=== PATIENT | male | born 1960 | race Caucasian/White ===

== ENCOUNTER → 2020-09-28 | Outpatient (CLI) | payer OTHER | END | disposition home or self-care (01) | LOC: CT 10:02 | DX: M48.03 Spinal stenosis, cervicothoracic region (principal); M47.813 Spondylosis without myelopathy or radiculopathy, cervicothoracic region; Z98.1 Arthrodesis status; G89.29 Other chronic pain | CPT/HCPCS: 72125 ==

== ENCOUNTER 2021-03-25 16:55 | Inpatient (IN) | payer OTHER ==
[~2021-03-25] VITALS: Ht 177.8 cm; Wt 97.8 kg
[2021-03-25] MEDS ORDERED: cefTRIAXone 1GM/50ML D5W 50 ML IV ONE (19:00)
[2021-03-25] MEDS ORDERED: ONDANSETRON HCL 4 MG/2 ML VIAL IV ONE (19:00)
[2021-03-25] MEDS ORDERED: SODIUM CHLORIDE 0.9% 1,000 ML IVB ONE (19:00)
[2021-03-25] MEDS ORDERED: MORPHINE SULFATE INJECTION 2 MG/ML SYRG IV ONE (20:15)
[2021-03-25 20:21] LABS: Basophils # (auto) 0.1 10 ^3/uL (0-0.2); Eosinophils # (auto) 0.1 10 ^3/uL (0-0.8); Monocytes % (auto) 10.1 % (0.0-12.0); Nucleated Red Blood Cells % 0.1 %
[2021-03-25 20:23] LABS: Basophils % (auto) 0.4 % (0.0-2.0); Eosinophils % (auto) 0.7 % (0.0-7.0); Hematocrit 47.9 % (41.0-53.0); Hemoglobin 15.8 g/dL (13.5-17.5); Lymphocytes # (auto) 2.7 10 ^3/uL (0.4-5.4); Lymphocytes % (auto) 14.8 % (10.0-50.0); Mean Corpuscular Hemoglobin 31.9 pg (28.0-32.0); Mean Corpuscular Hgb Conc. 33.1 g/dL (32.0-36.0); Mean Corpuscular Volume 96.4 fL (80.0-100.0); Monocytes # (auto) 1.9 10 ^3/uL (0-1.3); Neutrophils # (auto) 13.6 10 ^3/uL (1.6-8.6); Red Blood Cells 4.97 10^6/uL (4.5-5.90); Red Cell Distribution Width 14.1 % (11.8-14.3); White Blood Cell 18.4 10^3/uL (4.4-10.8)
[2021-03-25 20:32] LABS: Partial Thromboplastin Time 22.5 sec (23.6-33.0)
[2021-03-25 20:38] LABS: Alanine Aminotransferase 35 U/L (16-61); Albumin 3.5 g/dL (3.4-5.0); Anion Gap 10 (5-15); Aspartate Aminotransferase 36 U/L (15-37); Blood Urea Nitrogen 17 mg/dL (7-18); Calcium 9.4 mg/dL (8.5-10.1); Carbon Dioxide 24 mmol/L (21-32); Chloride 104 mmol/L (98-107); GFR African American 138 mL/min; GFR Non-African American 114 mL/min; Glucose 88 mg/dL (74-106); Magnesium 2.5 mg/dL (1.6-2.6); Potassium 4.9 mmol/L (3.5-5.1); Sodium 138 mmol/L (136-145)
[2021-03-25 20:42] LABS: Alkaline Phosphatase 80 U/L (45-117); Bilirubin, Total 0.6 mg/dL (0.2-1.0); Total Protein 8.6 g/dL (6.4-8.2)
[2021-03-25] MEDS ORDERED: VANCOMYCIN PER PHARMACY 0 MG IV SCH (22:00)
[2021-03-25] MEDS ORDERED: NITROGLYCERIN 0.4 MG SL TAB SL PRN (22:15)
[2021-03-25] MEDS ORDERED: MORPHINE SULFATE INJECTION 2 MG/ML SYRG IV PRN (22:15)
[2021-03-25] MEDS ORDERED: VANCOMYCIN 1GM/250ML 250 ML IV ONE ×2 (22:15→22:30)
[2021-03-25] MEDS: HYDROmorphone HCL 2 MG/ML VL IV PRN (22:58)
[2021-03-26] VITALS (7 sets, daily range): BP systolic 120–155; BP diastolic 76–93
[2021-03-26] MEDS: PIPERACILLIN-TAZOB 3.375GM 100 ML IV SCH ×4 (01:30→18:01)
[2021-03-26] MEDS: HYDROmorphone HCL 2 MG/ML VL IV PRN ×4 (01:46→20:32)
[2021-03-26] MEDS ORDERED: AMLO-489 PO (04:12)
[2021-03-26 04:52] LABS: Basophils # (auto) 0.1 10 ^3/uL (0-0.2); Basophils % (auto) 0.6 % (0.0-2.0); Eosinophils # (auto) 0.1 10 ^3/uL (0-0.8); Hemoglobin 13.2 g/dL (13.5-17.5); Neutrophils # (auto) 9.9 10 ^3/uL (1.6-8.6); White Blood Cell 15.2 10^3/uL (4.4-10.8)
[2021-03-26 04:54] LABS: Eosinophils % (auto) 0.9 % (0.0-7.0); Hematocrit 39.8 % (41.0-53.0); Lymphocytes # (auto) 2.6 10 ^3/uL (0.4-5.4); Lymphocytes % (auto) 17.1 % (10.0-50.0); Mean Corpuscular Hemoglobin 31.8 pg (28.0-32.0); Mean Corpuscular Volume 96.2 fL (80.0-100.0); Monocytes # (auto) 2.5 10 ^3/uL (0-1.3); Monocytes % (auto) 16.4 % (0.0-12.0); Red Blood Cells 4.14 10^6/uL (4.5-5.90); Red Cell Distribution Width 14.3 % (11.8-14.3)
[2021-03-26] MEDS: PANTOPRAZOLE 40 MG/10 ML VIAL INJ IV SCH (09:40)
[2021-03-26] MEDS: amLODIPine BESYLATE 5 MG TAB PO SCH (09:42)
[2021-03-26] MEDS: ENOXAPARIN SOD 40 MG/0.4 ML SYRINGE SC SCH (09:42)
[2021-03-26] MEDS: VANCOMYCIN 1GM/250ML 250 ML IV SCH (12:57)
[2021-03-26 20:24] LABS: Basophils # (auto) 0.1 10 ^3/uL (0-0.2); Eosinophils # (auto) 0.1 10 ^3/uL (0-0.8); Hemoglobin 13.6 g/dL (13.5-17.5); Lymphocytes # (auto) 2.3 10 ^3/uL (0.4-5.4); Monocytes # (auto) 1.9 10 ^3/uL (0-1.3); Neutrophils # (auto) 9.4 10 ^3/uL (1.6-8.6)
[2021-03-26 20:26] LABS: Basophils % (auto) 0.4 % (0.0-2.0); Eosinophils % (auto) 1.1 % (0.0-7.0); Hematocrit 41.7 % (41.0-53.0); Lymphocytes % (auto) 16.4 % (10.0-50.0); Mean Corpuscular Hemoglobin 31.6 pg (28.0-32.0); Mean Corpuscular Hgb Conc. 32.6 g/dL (32.0-36.0); Mean Corpuscular Volume 96.9 fL (80.0-100.0); Monocytes % (auto) 13.8 % (0.0-12.0); Neutrophils % (auto) 68.3 % (37.0-80.0); Red Cell Distribution Width 14.1 % (11.8-14.3); White Blood Cell 13.8 10^3/uL (4.4-10.8)
[2021-03-26] MEDS: ONDANSETRON HCL 4 MG/2 ML VIAL IV PRN (20:33)
[2021-03-26 20:41] LABS: Albumin 2.9 g/dL (3.4-5.0); BUN/Creatinine Ratio 22.7; Potassium 4.3 mmol/L (3.5-5.1)
[2021-03-26 20:45] LABS: Bilirubin, Total 0.4 mg/dL (0.2-1.0); Total Protein 7.1 g/dL (6.4-8.2)
[2021-03-26] MEDS: MUPIROCIN 2% OINT 15gm or 22gm EACHNOSTRI SCH (21:45)
[2021-03-27] MEDS: PIPERACILLIN-TAZOB 3.375GM 100 ML IV SCH ×4 (00:15→18:07)
[2021-03-27] MEDS: HYDROmorphone HCL 2 MG/ML VL IV PRN ×6 (00:25→21:42)
[2021-03-27] MEDS: HYDROcodone-ACET 5/325MG TAB PO PRN (03:02)
[2021-03-27] MEDS: VANCOMYCIN 1GM/250ML 250 ML IV SCH ×2 (03:15→16:44)
[2021-03-27 05:00] VITALS: BP 111/75
[2021-03-27 08:00] VITALS: BP 125/74
[2021-03-27 09:00] VITALS: BP 125/74
[2021-03-27] MEDS: PANTOPRAZOLE 40 MG/10 ML VIAL INJ IV SCH (10:00)
[2021-03-27] MEDS: MUPIROCIN 2% OINT 15gm or 22gm EACHNOSTRI SCH (10:00)
[2021-03-27] MEDS: amLODIPine BESYLATE 5 MG TAB PO SCH (10:01)
[2021-03-27] MEDS: ENOXAPARIN SOD 40 MG/0.4 ML SYRINGE SC SCH (10:01)
[2021-03-27] MEDS: ONDANSETRON HCL 4 MG/2 ML VIAL IV PRN ×2 (11:04→15:41)
[2021-03-27] MEDS ORDERED: MILK OF MAGNESIA 30ML SUSP PO ONE (11:30)
[2021-03-27] MEDS ORDERED: DOCUSATE SOD 100 MG CAP PO ONE (11:30)
[2021-03-27 13:00] VITALS: BP 128/79
[2021-03-27 16:11] LABS: Mean Corpuscular Hemoglobin 31.7 pg (28.0-32.0); Mean Corpuscular Hgb Conc. 32.7 g/dL (32.0-36.0)
[2021-03-27 16:14] LABS: Basophils # (auto) 0.1 10 ^3/uL (0-0.2); Basophils % (auto) 0.5 % (0.0-2.0); Eosinophils # (auto) 0.2 10 ^3/uL (0-0.8); Eosinophils % (auto) 1.6 % (0.0-7.0); Hematocrit 42.2 % (41.0-53.0); Hemoglobin 13.8 g/dL (13.5-17.5); Lymphocytes # (auto) 2.6 10 ^3/uL (0.4-5.4); Lymphocytes % (auto) 16.7 % (10.0-50.0); Monocytes % (auto) 13.1 % (0.0-12.0); Neutrophils # (auto) 10.6 10 ^3/uL (1.6-8.6); Neutrophils % (auto) 68.1 % (37.0-80.0); Red Blood Cells 4.35 10^6/uL (4.5-5.90); Red Cell Distribution Width 13.8 % (11.8-14.3); White Blood Cell 15.6 10^3/uL (4.4-10.8)
[2021-03-27 17:00] VITALS: BP 127/75
[2021-03-27 22:00] VITALS: BP 145/95
[2021-03-28] MEDS: MILK OF MAGNESIA 30ML SUSP PO SCH ×5 (00:03→22:45)
[2021-03-28] MEDS: MUPIROCIN 2% OINT 15gm or 22gm EACHNOSTRI SCH ×3 (00:03→22:21)
[2021-03-28] MEDS: PIPERACILLIN-TAZOB 3.375GM 100 ML IV SCH ×5 (00:05→23:21)
[2021-03-28] MEDS: HYDROmorphone HCL 2 MG/ML VL IV PRN ×5 (01:11→23:22)
[2021-03-28] MEDS: VANCOMYCIN 1GM/250ML 250 ML IV SCH ×2 (04:54→18:00)
[2021-03-28 05:00] VITALS: BP 136/80
[2021-03-28] MEDS: ONDANSETRON HCL 4 MG/2 ML VIAL IV PRN ×4 (06:43→23:22)
[2021-03-28 09:00] VITALS: BP 118/83
[2021-03-28] MEDS: amLODIPine BESYLATE 5 MG TAB PO SCH (10:00)
[2021-03-28] MEDS: ENOXAPARIN SOD 40 MG/0.4 ML SYRINGE SC SCH (10:00)
[2021-03-28] MEDS: PANTOPRAZOLE 40 MG/10 ML VIAL INJ IV SCH (10:00)
[2021-03-28 17:00] VITALS: BP 100/49
[2021-03-28 22:00] VITALS: BP 126/75
[2021-03-29] MEDS: HYDROmorphone HCL 2 MG/ML VL IV PRN ×4 (03:53→23:50)
[2021-03-29 05:00] VITALS: BP 120/78
[2021-03-29] MEDS: VANCOMYCIN 1GM/250ML 250 ML IV SCH ×2 (05:09→17:00)
[2021-03-29] MEDS: PIPERACILLIN-TAZOB 3.375GM 100 ML IV SCH ×4 (05:15→23:47)
[2021-03-29] MEDS: MILK OF MAGNESIA 30ML SUSP PO SCH ×3 (06:41→23:48)
[2021-03-29 09:19] VITALS: BP 134/81
[2021-03-29] MEDS: MUPIROCIN 2% OINT 15gm or 22gm EACHNOSTRI SCH ×2 (10:00→22:00)
[2021-03-29] MEDS: ONDANSETRON HCL 4 MG/2 ML VIAL IV PRN ×3 (11:11→23:50)
[2021-03-29] MEDS: amLODIPine BESYLATE 5 MG TAB PO SCH (11:13)
[2021-03-29] MEDS: ENOXAPARIN SOD 40 MG/0.4 ML SYRINGE SC SCH (11:14)
[2021-03-29] MEDS: PANTOPRAZOLE 40 MG/10 ML VIAL INJ IV SCH (11:19)
[2021-03-29 13:00] VITALS: BP 128/78
[2021-03-29 17:00] VITALS: BP 126/71
[2021-03-29 22:00] VITALS: BP 126/69
[2021-03-29] MEDS: HYDROcodone-ACET 5/325MG TAB PO PRN (22:17)
[2021-03-30] MEDS: HYDROcodone-ACET 5/325MG TAB PO PRN ×2 (04:29→11:39)
[2021-03-30] MEDS: VANCOMYCIN 1GM/250ML 250 ML IV SCH ×2 (04:30→16:48)
[2021-03-30 05:00] VITALS: BP 142/91
[2021-03-30] MEDS: MILK OF MAGNESIA 30ML SUSP PO SCH ×3 (06:26→22:16)
[2021-03-30] MEDS: PIPERACILLIN-TAZOB 3.375GM 100 ML IV SCH ×4 (06:32→23:50)
[2021-03-30] MEDS: HYDROmorphone HCL 2 MG/ML VL IV PRN ×4 (06:40→23:50)
[2021-03-30] MEDS: ONDANSETRON HCL 4 MG/2 ML VIAL IV PRN ×2 (06:40→20:32)
[2021-03-30 09:05] VITALS: BP 132/68
[2021-03-30] MEDS: MUPIROCIN 2% OINT 15gm or 22gm EACHNOSTRI SCH ×2 (09:31→22:16)
[2021-03-30] MEDS: PANTOPRAZOLE 40 MG/10 ML VIAL INJ IV SCH (09:31)
[2021-03-30] MEDS: amLODIPine BESYLATE 5 MG TAB PO SCH (09:31)
[2021-03-30] MEDS: ENOXAPARIN SOD 40 MG/0.4 ML SYRINGE SC SCH (09:31)
[2021-03-30 13:00] VITALS: BP 140/87
[2021-03-30 16:19] VITALS: BP 120/75
[2021-03-30 22:00] VITALS: BP 124/83
[2021-03-31] MEDS: HYDROmorphone HCL 2 MG/ML VL IV PRN ×6 (03:04→20:35)
[2021-03-31] MEDS: ONDANSETRON HCL 4 MG/2 ML VIAL IV PRN ×3 (03:04→16:59)
[2021-03-31 05:00] VITALS: BP 114/77
[2021-03-31] MEDS: VANCOMYCIN 1GM/250ML 250 ML IV SCH ×2 (05:09→17:30)
[2021-03-31] MEDS: PIPERACILLIN-TAZOB 3.375GM 100 ML IV SCH ×4 (06:08→23:45)
[2021-03-31] MEDS: MILK OF MAGNESIA 30ML SUSP PO SCH ×3 (06:08→23:44)
[2021-03-31 08:24] LABS: Basophils # (auto) 0.1 10 ^3/uL (0-0.2); Eosinophils # (auto) 0.3 10 ^3/uL (0-0.8); Hemoglobin 14.3 g/dL (13.5-17.5); Lymphocytes # (auto) 2.3 10 ^3/uL (0.4-5.4); Nucleated Red Blood Cells % 0.1 %; Red Cell Distribution Width 13.9 % (11.8-14.3)
[2021-03-31 08:25] LABS: Basophils % (auto) 0.6 % (0.0-2.0); Eosinophils % (auto) 2.3 % (0.0-7.0); Lymphocytes % (auto) 16.3 % (10.0-50.0); Mean Corpuscular Hemoglobin 31.8 pg (28.0-32.0); Mean Corpuscular Hgb Conc. 33.3 g/dL (32.0-36.0); Mean Corpuscular Volume 95.6 fL (80.0-100.0); Neutrophils # (auto) 9.3 10 ^3/uL (1.6-8.6); Neutrophils % (auto) 66.8 % (37.0-80.0)
[2021-03-31 08:43] VITALS: BP 127/80
[2021-03-31] MEDS: MUPIROCIN 2% OINT 15gm or 22gm EACHNOSTRI SCH (09:58)
[2021-03-31] MEDS: amLODIPine BESYLATE 5 MG TAB PO SCH (09:59)
[2021-03-31] MEDS: ENOXAPARIN SOD 40 MG/0.4 ML SYRINGE SC SCH (09:59)
[2021-03-31] MEDS: PANTOPRAZOLE 40 MG/10 ML VIAL INJ IV SCH (09:59)
[2021-03-31] MEDS: CYCLOBENZAPRINE HCL 10 MG TAB PO PRN ×2 (10:59→20:42)
[2021-03-31 13:00] VITALS: BP 126/76
[2021-03-31 16:20] VITALS: BP 134/85
[2021-03-31 22:00] VITALS: BP 119/80
[2021-04-01] MEDS: HYDROmorphone HCL 2 MG/ML VL IV PRN ×7 (00:21→23:45)
[2021-04-01] MEDS: ONDANSETRON HCL 4 MG/2 ML VIAL IV PRN ×3 (00:22→17:07)
[2021-04-01 05:00] VITALS: BP 130/82
[2021-04-01] MEDS: VANCOMYCIN 1GM/250ML 250 ML IV SCH ×2 (05:00→17:36)
[2021-04-01] MEDS: PIPERACILLIN-TAZOB 3.375GM 100 ML IV SCH ×3 (06:00→18:38)
[2021-04-01] MEDS: MILK OF MAGNESIA 30ML SUSP PO SCH ×3 (06:29→22:22)
[2021-04-01 09:00] VITALS: BP 145/87
[2021-04-01] MEDS: PANTOPRAZOLE 40 MG/10 ML VIAL INJ IV SCH (09:36)
[2021-04-01] MEDS: amLODIPine BESYLATE 5 MG TAB PO SCH (09:37)
[2021-04-01] MEDS: ENOXAPARIN SOD 40 MG/0.4 ML SYRINGE SC SCH (09:38)
[2021-04-01 13:00] VITALS: BP 109/70
[2021-04-01 17:00] VITALS: BP 127/88
[2021-04-01 22:00] VITALS: BP 120/76
[2021-04-02] MEDS: PIPERACILLIN-TAZOB 3.375GM 100 ML IV SCH ×4 (02:03→17:33)
[2021-04-02] MEDS: HYDROmorphone HCL 2 MG/ML VL IV PRN ×6 (02:42→23:00)
[2021-04-02 05:00] VITALS: BP 123/80
[2021-04-02] MEDS: VANCOMYCIN 1GM/250ML 250 ML IV SCH ×2 (05:00→17:33)
[2021-04-02] MEDS: MILK OF MAGNESIA 30ML SUSP PO SCH ×3 (06:03→21:13)
[2021-04-02 09:00] VITALS: BP 119/79
[2021-04-02] MEDS: amLODIPine BESYLATE 5 MG TAB PO SCH (09:34)
[2021-04-02] MEDS: PANTOPRAZOLE 40 MG/10 ML VIAL INJ IV SCH (09:34)
[2021-04-02] MEDS: ENOXAPARIN SOD 40 MG/0.4 ML SYRINGE SC SCH (09:35)
[2021-04-02 13:00] VITALS: BP 133/69
[2021-04-02] MEDS: ONDANSETRON HCL 4 MG/2 ML VIAL IV PRN (16:37)
[2021-04-02 17:49] VITALS: BP 106/72
[2021-04-02] MEDS: CYCLOBENZAPRINE HCL 10 MG TAB PO PRN (21:00)
[2021-04-02 22:00] VITALS: BP 121/75
[2021-04-03] MEDS: HYDROcodone-ACET 5/325MG TAB PO PRN (00:30)
[2021-04-03] MEDS: HYDROmorphone HCL 2 MG/ML VL IV PRN ×6 (02:00→22:13)
[2021-04-03 05:00] VITALS: BP 126/86
[2021-04-03] MEDS: VANCOMYCIN 1GM/250ML 250 ML IV SCH ×3 (05:00→22:13)
[2021-04-03] MEDS: PIPERACILLIN-TAZOB 3.375GM 100 ML IV SCH ×4 (06:00→18:04)
[2021-04-03] MEDS: MILK OF MAGNESIA 30ML SUSP PO SCH ×3 (06:15→21:58)
[2021-04-03] MEDS: CYCLOBENZAPRINE HCL 10 MG TAB PO PRN ×2 (07:46→23:00)
[2021-04-03 07:51] LABS: Basophils # (auto) 0.1 10 ^3/uL (0-0.2); Lymphocytes # (auto) 2.2 10 ^3/uL (0.4-5.4); Monocytes # (auto) 1.5 10 ^3/uL (0-1.3); Neutrophils # (auto) 7.3 10 ^3/uL (1.6-8.6); Nucleated Red Blood Cells % 0.1 %
[2021-04-03 07:53] LABS: Basophils % (auto) 1.2 % (0.0-2.0); Eosinophils # (auto) 0.4 10 ^3/uL (0-0.8); Eosinophils % (auto) 3.3 % (0.0-7.0); Hematocrit 43.4 % (41.0-53.0); Hemoglobin 14.5 g/dL (13.5-17.5); Lymphocytes % (auto) 19.3 % (10.0-50.0); Mean Corpuscular Hemoglobin 32.1 pg (28.0-32.0); Mean Corpuscular Hgb Conc. 33.5 g/dL (32.0-36.0); Mean Corpuscular Volume 95.9 fL (80.0-100.0); Monocytes % (auto) 13.3 % (0.0-12.0); Neutrophils % (auto) 62.9 % (37.0-80.0); Red Blood Cells 4.53 10^6/uL (4.5-5.90); Red Cell Distribution Width 13.8 % (11.8-14.3); White Blood Cell 11.6 10^3/uL (4.4-10.8)
[2021-04-03 07:55] LABS: Albumin 2.9 g/dL (3.4-5.0); Calcium 9.3 mg/dL (8.5-10.1); Potassium 4.5 mmol/L (3.5-5.1)
[2021-04-03 07:59] LABS: BUN/Creatinine Ratio 13.2; Bilirubin, Total 0.3 mg/dL (0.2-1.0)
[2021-04-03] MEDS: PANTOPRAZOLE 40 MG/10 ML VIAL INJ IV SCH (08:23)
[2021-04-03] MEDS: amLODIPine BESYLATE 5 MG TAB PO SCH (08:24)
[2021-04-03] MEDS: ENOXAPARIN SOD 40 MG/0.4 ML SYRINGE SC SCH (08:25)
[2021-04-03 09:00] VITALS: BP 115/83
[2021-04-03 13:00] VITALS: BP 115/78
[2021-04-03 14:37] LABS: Basophils # (auto) 0.1 10 ^3/uL (0-0.2); Eosinophils # (auto) 0.3 10 ^3/uL (0-0.8); Lymphocytes # (auto) 1.5 10 ^3/uL (0.4-5.4); Monocytes # (auto) 1.2 10 ^3/uL (0-1.3); Monocytes % (auto) 10.5 % (0.0-12.0)
[2021-04-03 14:38] LABS: Basophils % (auto) 0.7 % (0.0-2.0); Eosinophils % (auto) 2.7 % (0.0-7.0); Hematocrit 46.2 % (41.0-53.0); Lymphocytes % (auto) 13.8 % (10.0-50.0); Mean Corpuscular Hemoglobin 31.1 pg (28.0-32.0); Mean Corpuscular Hgb Conc. 32.5 g/dL (32.0-36.0); Mean Corpuscular Volume 95.6 fL (80.0-100.0); Neutrophils % (auto) 72.3 % (37.0-80.0); Nucleated Red Blood Cells % 0.1 %; Red Blood Cells 4.84 10^6/uL (4.5-5.90); Red Cell Distribution Width 13.9 % (11.8-14.3); White Blood Cell 11.1 10^3/uL (4.4-10.8)
[2021-04-03 14:59] LABS: Calcium 8.9 mg/dL (8.5-10.1); Potassium 4.5 mmol/L (3.5-5.1)
[2021-04-03 15:02] LABS: BUN/Creatinine Ratio 13.6; Bilirubin, Total 0.2 mg/dL (0.2-1.0); Total Protein 7.9 g/dL (6.4-8.2)
[2021-04-03 17:00] VITALS: BP 107/40
[2021-04-03 20:00] VITALS: BP 112/73
[2021-04-03 22:00] VITALS: BP 112/73
[2021-04-04] MEDS: HYDROmorphone HCL 2 MG/ML VL IV PRN ×6 (01:13→21:15)
[2021-04-04 05:00] VITALS: BP 124/68
[2021-04-04] MEDS: PIPERACILLIN-TAZOB 3.375GM 100 ML IV SCH ×4 (06:00→17:51)
[2021-04-04] MEDS: MILK OF MAGNESIA 30ML SUSP PO SCH ×3 (06:45→22:45)
[2021-04-04 08:00] VITALS: BP 111/73
[2021-04-04] MEDS: VANCOMYCIN 1GM/250ML 250 ML IV SCH ×2 (09:22→23:03)
[2021-04-04] MEDS: PANTOPRAZOLE 40 MG/10 ML VIAL INJ IV SCH (09:22)
[2021-04-04] MEDS: ENOXAPARIN SOD 40 MG/0.4 ML SYRINGE SC SCH (09:22)
[2021-04-04] MEDS: amLODIPine BESYLATE 5 MG TAB PO SCH (09:23)
[2021-04-04] MEDS: ONDANSETRON HCL 4 MG/2 ML VIAL IV PRN ×3 (09:30→21:16)
[2021-04-04 13:00] VITALS: BP 127/80
[2021-04-04 17:04] VITALS: BP 143/85
[2021-04-04 22:00] VITALS: BP 120/60
[2021-04-05] MEDS: PIPERACILLIN-TAZOB 3.375GM 100 ML IV SCH ×5 (00:30→18:29)
[2021-04-05] MEDS: HYDROmorphone HCL 2 MG/ML VL IV PRN ×4 (02:15→16:15)
[2021-04-05 05:00] VITALS: BP 121/71
[2021-04-05] MEDS: MILK OF MAGNESIA 30ML SUSP PO SCH ×3 (06:17→22:45)
[2021-04-05] MEDS: ONDANSETRON HCL 4 MG/2 ML VIAL IV PRN (06:19)
[2021-04-05 09:00] VITALS: BP 125/77
[2021-04-05] MEDS: PANTOPRAZOLE 40 MG/10 ML VIAL INJ IV SCH (10:08)
[2021-04-05] MEDS: ENOXAPARIN SOD 40 MG/0.4 ML SYRINGE SC SCH (10:09)
[2021-04-05] MEDS: amLODIPine BESYLATE 5 MG TAB PO SCH (10:20)
[2021-04-05 13:00] VITALS: BP 110/82
[2021-04-05] MEDS: OXYCODONE W/ ACETAMINOPHEN 5/325MG TABLET PO PRN ×2 (13:07→21:54)
[2021-04-05] MEDS: VANCOMYCIN 1GM/250ML 250 ML IV SCH (13:30)
[2021-04-05 17:00] VITALS: BP 108/69
[2021-04-05 22:00] VITALS: BP 131/85
[2021-04-06] MEDS: OXYCODONE W/ ACETAMINOPHEN 5/325MG TABLET PO PRN ×5 (01:37→22:08)
[2021-04-06] MEDS: VANCOMYCIN 1GM/250ML 250 ML IV SCH ×2 (03:07→17:11)
[2021-04-06 05:00] VITALS: BP 130/71
[2021-04-06] MEDS: PIPERACILLIN-TAZOB 3.375GM 100 ML IV SCH ×4 (05:36→21:15)
[2021-04-06] MEDS: MILK OF MAGNESIA 30ML SUSP PO SCH ×3 (06:37→22:45)
[2021-04-06 06:52] LABS: Basophils # (auto) 0.1 10 ^3/uL (0-0.2); Eosinophils # (auto) 0.3 10 ^3/uL (0-0.8); Hemoglobin 15.1 g/dL (13.5-17.5); Monocytes # (auto) 1.6 10 ^3/uL (0-1.3); White Blood Cell 10.2 10^3/uL (4.4-10.8)
[2021-04-06 06:56] LABS: Potassium 4.3 mmol/L (3.5-5.1)
[2021-04-06 06:57] LABS: Eosinophils % (auto) 2.9 % (0.0-7.0); Hematocrit 45.1 % (41.0-53.0); Lymphocytes # (auto) 2.6 10 ^3/uL (0.4-5.4); Lymphocytes % (auto) 25.9 % (10.0-50.0); Mean Corpuscular Hemoglobin 32.4 pg (28.0-32.0); Mean Corpuscular Hgb Conc. 33.4 g/dL (32.0-36.0); Mean Corpuscular Volume 96.8 fL (80.0-100.0); Monocytes % (auto) 15.2 % (0.0-12.0); Neutrophils # (auto) 5.6 10 ^3/uL (1.6-8.6); Nucleated Red Blood Cells % 0.1 %; Red Blood Cells 4.66 10^6/uL (4.5-5.90); Red Cell Distribution Width 14.2 % (11.8-14.3)
[2021-04-06 07:01] LABS: Calcium 9.1 mg/dL (8.5-10.1)
[2021-04-06 09:00] VITALS: BP 127/72
[2021-04-06] MEDS: PANTOPRAZOLE 40 MG/10 ML VIAL INJ IV SCH (10:03)
[2021-04-06] MEDS: amLODIPine BESYLATE 5 MG TAB PO SCH (10:03)
[2021-04-06] MEDS: ENOXAPARIN SOD 40 MG/0.4 ML SYRINGE SC SCH (10:16)
[2021-04-06 13:00] VITALS: BP 129/79
[2021-04-06 16:48] VITALS: BP 118/77
[2021-04-06 22:00] VITALS: BP 115/81
[2021-04-07] MEDS: PIPERACILLIN-TAZOB 3.375GM 100 ML IV SCH ×4 (00:15→23:25)
[2021-04-07] MEDS: OXYCODONE W/ ACETAMINOPHEN 5/325MG TABLET PO PRN ×5 (01:36→22:25)
[2021-04-07 05:00] VITALS: BP 139/78
[2021-04-07] MEDS: MILK OF MAGNESIA 30ML SUSP PO SCH ×4 (06:29→22:42)
[2021-04-07] MEDS: VANCOMYCIN 1GM/250ML 250 ML IV SCH ×2 (06:30→20:55)
[2021-04-07] MEDS: PANTOPRAZOLE 40 MG/10 ML VIAL INJ IV SCH (08:56)
[2021-04-07] MEDS: amLODIPine BESYLATE 5 MG TAB PO SCH (08:57)
[2021-04-07 09:00] VITALS: BP 127/88
[2021-04-07 13:00] VITALS: BP 130/80
[2021-04-07 17:00] VITALS: BP 118/78
[2021-04-07 22:00] VITALS: BP 126/75
[2021-04-07] MEDS: CYCLOBENZAPRINE HCL 10 MG TAB PO PRN (22:25)
[2021-04-08 05:15] VITALS: BP 133/84
[2021-04-08] MEDS: PIPERACILLIN-TAZOB 3.375GM 100 ML IV SCH ×3 (05:52→17:31)
[2021-04-08] MEDS: MILK OF MAGNESIA 30ML SUSP PO SCH ×3 (06:39→22:45)
[2021-04-08] MEDS: OXYCODONE W/ ACETAMINOPHEN 5/325MG TABLET PO PRN ×3 (08:34→22:32)
[2021-04-08 08:50] VITALS: BP 127/88
[2021-04-08] MEDS: PANTOPRAZOLE 40 MG/10 ML VIAL INJ IV SCH (09:57)
[2021-04-08] MEDS: amLODIPine BESYLATE 5 MG TAB PO SCH (09:57)
[2021-04-08] MEDS: VANCOMYCIN 1GM/250ML 250 ML IV SCH (12:22)
[2021-04-08 13:00] VITALS: BP 124/73
[2021-04-08 17:00] VITALS: BP 115/72
[2021-04-08 20:00] VITALS: BP 121/76
[2021-04-08 22:00] VITALS: BP 121/76
[2021-04-09] MEDS: VANCOMYCIN 1GM/250ML 250 ML IV SCH ×2 (01:18→15:00)
[2021-04-09] MEDS: PIPERACILLIN-TAZOB 3.375GM 100 ML IV SCH ×4 (01:20→18:00)
[2021-04-09 05:00] VITALS: BP 111/80
[2021-04-09] MEDS: MILK OF MAGNESIA 30ML SUSP PO SCH ×2 (06:45→14:45)
[2021-04-09 09:00] VITALS: BP_SYST 136; BP_SYST 16; BP_DIAS 88
[2021-04-09] MEDS: amLODIPine BESYLATE 5 MG TAB PO SCH (09:36)
[2021-04-09] MEDS: PANTOPRAZOLE 40 MG/10 ML VIAL INJ IV SCH (09:36)
[2021-04-09] MEDS: OXYCODONE W/ ACETAMINOPHEN 5/325MG TABLET PO PRN ×3 (12:25→22:54)
[2021-04-09 13:00] VITALS: BP 140/94
[2021-04-09 17:00] VITALS: BP 134/84
[2021-04-09] MEDS ORDERED: MILK OF MAGNESIA 30ML SUSP PO PRN (19:15)
[2021-04-09 20:00] VITALS: BP 125/79
[2021-04-09 22:00] VITALS: BP 125/79
[2021-04-10] MEDS: OXYCODONE W/ ACETAMINOPHEN 5/325MG TABLET PO PRN ×2 (02:55→20:39)
[2021-04-10 05:00] VITALS: BP 137/92
[2021-04-10] MEDS: VANCOMYCIN 1GM/250ML 250 ML IV SCH ×2 (05:00→20:24)
[2021-04-10] MEDS: PIPERACILLIN-TAZOB 3.375GM 100 ML IV SCH ×5 (06:05→23:59)
[2021-04-10 08:55] VITALS: BP 141/83
[2021-04-10] MEDS: amLODIPine BESYLATE 5 MG TAB PO SCH (10:00)
[2021-04-10] MEDS: PANTOPRAZOLE 40 MG/10 ML VIAL INJ IV SCH (10:00)
[2021-04-10 13:00] VITALS: BP 125/73
[2021-04-10 17:00] VITALS: BP 120/81
[2021-04-10 21:37] VITALS: BP 123/74
[2021-04-11] MEDS: PIPERACILLIN-TAZOB 3.375GM 100 ML IV SCH ×3 (05:08→19:43)
[2021-04-11 05:53] VITALS: BP 119/79
[2021-04-11 09:00] VITALS: BP 127/78
[2021-04-11] MEDS: PANTOPRAZOLE 40 MG/10 ML VIAL INJ IV SCH (09:08)
[2021-04-11] MEDS: VANCOMYCIN 1GM/250ML 250 ML IV SCH ×2 (09:08→22:41)
[2021-04-11] MEDS: amLODIPine BESYLATE 5 MG TAB PO SCH (09:09)
[2021-04-11] MEDS: OXYCODONE W/ ACETAMINOPHEN 5/325MG TABLET PO PRN ×2 (09:09→20:19)
[2021-04-11 13:00] VITALS: BP 150/98
[2021-04-11 17:00] VITALS: BP 124/87
[2021-04-11 21:40] VITALS: BP 115/80
[2021-04-12] MEDS: PIPERACILLIN-TAZOB 3.375GM 100 ML IV SCH ×5 (00:10→23:30)
[2021-04-12 05:18] VITALS: BP 113/71
[2021-04-12] MEDS: PANTOPRAZOLE 40 MG/10 ML VIAL INJ IV SCH (09:22)
[2021-04-12] MEDS: ENOXAPARIN SOD 40 MG/0.4 ML SYRINGE SC SCH (09:23)
[2021-04-12] MEDS: OXYCODONE W/ ACETAMINOPHEN 5/325MG TABLET PO PRN ×2 (09:23→21:28)
[2021-04-12 09:29] VITALS: BP 123/76
[2021-04-12] MEDS: amLODIPine BESYLATE 5 MG TAB PO SCH (10:52)
[2021-04-12] MEDS: VANCOMYCIN 1GM/250ML 250 ML IV SCH (13:54)
[2021-04-12 17:00] VITALS: BP 131/86
[2021-04-12 22:36] VITALS: BP_SYST 115
[2021-04-13] MEDS: VANCOMYCIN 1GM/250ML 250 ML IV SCH ×2 (03:31→17:04)
[2021-04-13 05:02] VITALS: BP 109/68
[2021-04-13 09:09] VITALS: BP 137/99
[2021-04-13] MEDS: PANTOPRAZOLE 40 MG/10 ML VIAL INJ IV SCH (09:41)
[2021-04-13] MEDS: amLODIPine BESYLATE 5 MG TAB PO SCH (09:41)
[2021-04-13] MEDS: ENOXAPARIN SOD 40 MG/0.4 ML SYRINGE SC SCH (09:42)
[2021-04-13 13:00] VITALS: BP 135/97
[2021-04-13 16:49] VITALS: BP 133/90
[2021-04-13 22:04] VITALS: BP 129/86
[2021-04-14 05:07] VITALS: BP 103/80
[2021-04-14] MEDS: VANCOMYCIN 1GM/250ML 250 ML IV SCH ×2 (06:46→21:03)
[2021-04-14 08:00] VITALS: BP 135/79
[2021-04-14] MEDS ORDERED: VANCOMYCIN PER PHARMACY 0 MG IV SCH (08:00)
[2021-04-14 08:31] VITALS: BP 135/79
[2021-04-14] MEDS: amLODIPine BESYLATE 5 MG TAB PO SCH (09:42)
[2021-04-14] MEDS: PANTOPRAZOLE 40 MG/10 ML VIAL INJ IV SCH (09:42)
[2021-04-14] MEDS: ENOXAPARIN SOD 40 MG/0.4 ML SYRINGE SC SCH (09:42)
[2021-04-14 12:37] VITALS: BP 139/92
[2021-04-14 16:48] VITALS: BP 127/84
[2021-04-14 22:00] VITALS: BP 110/69
[2021-04-15 05:00] VITALS: BP 123/75
[2021-04-15 08:00] VITALS: BP 119/73
[2021-04-15 09:00] VITALS: BP 119/73
[2021-04-15] MEDS: amLODIPine BESYLATE 5 MG TAB PO SCH (10:36)
[2021-04-15] MEDS: ENOXAPARIN SOD 40 MG/0.4 ML SYRINGE SC SCH (10:36)
[2021-04-15] MEDS: PANTOPRAZOLE 40 MG/10 ML VIAL INJ IV SCH (10:36)
[2021-04-15] MEDS: VANCOMYCIN 1GM/250ML 250 ML IV SCH (10:50)
[2021-04-15 13:14] VITALS: BP 116/81
[2021-04-15 17:00] VITALS: BP 15/80
[2021-04-15 22:00] VITALS: BP 121/82
[2021-04-16] MEDS: VANCOMYCIN 1GM/250ML 250 ML IV SCH ×2 (00:39→14:10)
[2021-04-16 05:00] VITALS: BP 111/71
[2021-04-16 09:00] VITALS: BP 108/71
[2021-04-16] MEDS: PANTOPRAZOLE 40 MG/10 ML VIAL INJ IV SCH (10:20)
[2021-04-16] MEDS: ENOXAPARIN SOD 40 MG/0.4 ML SYRINGE SC SCH (10:21)
[2021-04-16] MEDS: amLODIPine BESYLATE 5 MG TAB PO SCH (10:21)
[2021-04-16 13:00] VITALS: BP 126/84
[2021-04-16 15:03] LABS: Basophils # (auto) 0.1 10 ^3/uL (0-0.2); Basophils % (auto) 1.2 % (0.0-2.0); Eosinophils # (auto) 0.2 10 ^3/uL (0-0.8); Eosinophils % (auto) 1.9 % (0.0-7.0); Hematocrit 46.6 % (41.0-53.0); Hemoglobin 15.5 g/dL (13.5-17.5); Lymphocytes # (auto) 2.4 10 ^3/uL (0.4-5.4); Lymphocytes % (auto) 21.8 % (10.0-50.0); Mean Corpuscular Hemoglobin 31.5 pg (28.0-32.0); Mean Corpuscular Hgb Conc. 33.2 g/dL (32.0-36.0); Mean Corpuscular Volume 94.7 fL (80.0-100.0); Monocytes # (auto) 1.2 10 ^3/uL (0-1.3); Monocytes % (auto) 10.6 % (0.0-12.0); Neutrophils # (auto) 7.2 10 ^3/uL (1.6-8.6); Neutrophils % (auto) 64.5 % (37.0-80.0); Nucleated Red Blood Cells % 0.1 %; Red Blood Cells 4.92 10^6/uL (4.5-5.90); Red Cell Distribution Width 13.7 % (11.8-14.3); White Blood Cell 11.1 10^3/uL (4.4-10.8)
[2021-04-16 16:34] VITALS: BP 124/82
[2021-04-16 22:08] VITALS: BP 124/79
[2021-04-17 05:09] VITALS: BP 108/61
[2021-04-17] MEDS: VANCOMYCIN 1GM/250ML 250 ML IV SCH ×2 (05:47→18:15)
[2021-04-17 08:00] VITALS: BP 118/76
[2021-04-17] MEDS: PANTOPRAZOLE 40 MG/10 ML VIAL INJ IV SCH (09:21)
[2021-04-17] MEDS: ENOXAPARIN SOD 40 MG/0.4 ML SYRINGE SC SCH (09:23)
[2021-04-17] MEDS: amLODIPine BESYLATE 5 MG TAB PO SCH (09:23)
[2021-04-17 12:00] VITALS: BP 129/73
[2021-04-17 16:00] VITALS: BP 128/79
[2021-04-17 22:00] VITALS: BP 120/75
[2021-04-18 05:00] VITALS: BP 124/73
[2021-04-18 09:00] VITALS: BP 119/78
[2021-04-18] MEDS: ENOXAPARIN SOD 40 MG/0.4 ML SYRINGE SC SCH (09:09)
[2021-04-18] MEDS: amLODIPine BESYLATE 5 MG TAB PO SCH (09:09)
[2021-04-18] MEDS: PANTOPRAZOLE 40 MG/10 ML VIAL INJ IV SCH (09:09)
[2021-04-18] MEDS: VANCOMYCIN 1GM/250ML 250 ML IV SCH ×2 (09:09→23:45)
[2021-04-18 13:00] VITALS: BP 121/83
[2021-04-18 17:00] VITALS: BP 121/74
[2021-04-18] MEDS: ACETAMINOPHEN 325 MG TAB PO PRN (17:48)
[2021-04-18 22:00] VITALS: BP 117/71
[2021-04-18] MEDS: ARTIFICIAL TEARS 15ml EACHEYE PRN (23:45)
[2021-04-19 05:00] VITALS: BP 117/78
[2021-04-19 09:00] VITALS: BP_SYST 120; BP_SYST 145; BP_DIAS 77; BP_DIAS 87
[2021-04-19] MEDS: ENOXAPARIN SOD 40 MG/0.4 ML SYRINGE SC SCH (11:17)
[2021-04-19] MEDS: PANTOPRAZOLE 40 MG/10 ML VIAL INJ IV SCH (11:17)
[2021-04-19] MEDS: amLODIPine BESYLATE 5 MG TAB PO SCH (11:17)
[2021-04-19 13:00] VITALS: BP 114/75
[2021-04-19] MEDS: VANCOMYCIN 1GM/250ML 250 ML IV SCH (15:09)
[2021-04-19] MEDS: ARTIFICIAL TEARS 15ml EACHEYE PRN (15:10)
[2021-04-19 17:00] VITALS: BP 111/74
[2021-04-19 22:00] VITALS: BP 115/72
[2021-04-20] MEDS: VANCOMYCIN 1GM/250ML 250 ML IV SCH ×2 (02:57→16:57)
[2021-04-20 05:00] VITALS: BP 125/74
[2021-04-20 09:00] VITALS: BP 125/84
[2021-04-20] MEDS: PANTOPRAZOLE 40 MG/10 ML VIAL INJ IV SCH (09:51)
[2021-04-20] MEDS: ENOXAPARIN SOD 40 MG/0.4 ML SYRINGE SC SCH (09:52)
[2021-04-20] MEDS: amLODIPine BESYLATE 5 MG TAB PO SCH (09:52)
[2021-04-20 12:35] VITALS: BP 122/86
[2021-04-20] MEDS: ARTIFICIAL TEARS 15ml EACHEYE PRN (14:04)
[2021-04-20 16:43] VITALS: BP 117/78
[2021-04-20 21:55] VITALS: BP 124/79
[2021-04-21 05:12] VITALS: BP 114/73
[2021-04-21] MEDS: VANCOMYCIN 1GM/250ML 250 ML IV SCH ×2 (06:43→21:10)
[2021-04-21 09:00] VITALS: BP 124/79
[2021-04-21] MEDS: ENOXAPARIN SOD 40 MG/0.4 ML SYRINGE SC SCH (09:35)
[2021-04-21] MEDS: PANTOPRAZOLE 40 MG/10 ML VIAL INJ IV SCH (09:35)
[2021-04-21] MEDS: ARTIFICIAL TEARS 15ml EACHEYE PRN (09:36)
[2021-04-21] MEDS: amLODIPine BESYLATE 5 MG TAB PO SCH (09:36)
[2021-04-21 12:34] VITALS: BP 128/79
[2021-04-21 17:25] VITALS: BP 121/82
[2021-04-21 22:10] VITALS: BP 118/83
[2021-04-22 05:07] VITALS: BP 122/78
[2021-04-22 09:00] VITALS: BP 122/84
[2021-04-22] MEDS: PANTOPRAZOLE 40 MG/10 ML VIAL INJ IV SCH (09:38)
[2021-04-22] MEDS: ENOXAPARIN SOD 40 MG/0.4 ML SYRINGE SC SCH (09:38)
[2021-04-22] MEDS: amLODIPine BESYLATE 5 MG TAB PO SCH (09:38)
[2021-04-22] MEDS: ARTIFICIAL TEARS 15ml EACHEYE PRN (09:39)
[2021-04-22] MEDS: ACETAMINOPHEN 325 MG TAB PO PRN (11:06)
[2021-04-22] MEDS: VANCOMYCIN 1GM/250ML 250 ML IV SCH (11:06)
[2021-04-22 13:00] VITALS: BP 122/80
[2021-04-22 17:00] VITALS: BP 143/69
[2021-04-22 22:25] VITALS: BP 115/82
[2021-04-23] MEDS: VANCOMYCIN 1GM/250ML 250 ML IV SCH ×2 (00:44→14:44)
[2021-04-23 05:00] VITALS: BP 114/79
[2021-04-23 09:05] VITALS: BP 118/76
[2021-04-23] MEDS: PANTOPRAZOLE 40 MG/10 ML VIAL INJ IV SCH (09:07)
[2021-04-23] MEDS: amLODIPine BESYLATE 5 MG TAB PO SCH (09:08)
[2021-04-23] MEDS: ENOXAPARIN SOD 40 MG/0.4 ML SYRINGE SC SCH (09:08)
[2021-04-23 12:30] VITALS: BP 111/75
[2021-04-23 17:12] VITALS: BP 130/74
[2021-04-23] MEDS: ACETAMINOPHEN 325 MG TAB PO PRN (20:44)
[2021-04-23 22:00] VITALS: BP 126/84
[2021-04-24] MEDS: VANCOMYCIN 1GM/250ML 250 ML IV SCH ×2 (04:37→17:29)
[2021-04-24 05:00] VITALS: BP 105/75
[2021-04-24 09:00] VITALS: BP 119/72
[2021-04-24] MEDS: amLODIPine BESYLATE 5 MG TAB PO SCH (09:08)
[2021-04-24] MEDS: ENOXAPARIN SOD 40 MG/0.4 ML SYRINGE SC SCH (09:08)
[2021-04-24] MEDS: PANTOPRAZOLE 40 MG/10 ML VIAL INJ IV SCH (09:08)
[2021-04-24] MEDS: ARTIFICIAL TEARS 15ml EACHEYE PRN (09:09)
[2021-04-24 13:12] VITALS: BP 113/77
[2021-04-24] MEDS: ACETAMINOPHEN 325 MG TAB PO PRN (17:30)
[2021-04-24 18:08] VITALS: BP 117/73
[2021-04-24 22:08] VITALS: BP 114/66
[2021-04-25 05:17] VITALS: BP 110/71
[2021-04-25 08:59] VITALS: BP 108/76
[2021-04-25] MEDS: VANCOMYCIN 1GM/250ML 250 ML IV SCH ×2 (09:20→22:28)
[2021-04-25] MEDS: PANTOPRAZOLE 40 MG/10 ML VIAL INJ IV SCH (09:20)
[2021-04-25] MEDS: amLODIPine BESYLATE 5 MG TAB PO SCH (09:21)
[2021-04-25] MEDS: ENOXAPARIN SOD 40 MG/0.4 ML SYRINGE SC SCH (09:21)
[2021-04-25 13:30] VITALS: BP 111/74
[2021-04-25 16:30] VITALS: BP 110/73
[2021-04-25 21:30] VITALS: BP 116/78
[2021-04-25] MEDS: ARTIFICIAL TEARS 15ml EACHEYE PRN (21:34)
[2021-04-26 05:00] VITALS: BP 115/74
[2021-04-26 08:59] VITALS: BP 121/81
[2021-04-26] MEDS: ENOXAPARIN SOD 40 MG/0.4 ML SYRINGE SC SCH (10:03)
[2021-04-26 13:07] VITALS: BP 116/83
[2021-04-26] MEDS: VANCOMYCIN 1GM/250ML 250 ML IV SCH (13:57)
[2021-04-26] MEDS: ARTIFICIAL TEARS 15ml EACHEYE PRN (13:57)
[2021-04-26] MEDS: IBUPROFEN 800 MG TAB PO PRN (16:08)
[2021-04-26 17:00] VITALS: BP 120/76
[2021-04-26 22:00] VITALS: BP 130/77
[2021-04-27] MEDS: VANCOMYCIN 1GM/250ML 250 ML IV SCH ×2 (02:56→17:00)
[2021-04-27 05:00] VITALS: BP 116/85
[2021-04-27 09:00] VITALS: BP 117/85
[2021-04-27] MEDS: ENOXAPARIN SOD 40 MG/0.4 ML SYRINGE SC SCH (10:56)
[2021-04-27] MEDS: amLODIPine BESYLATE 5 MG TAB PO SCH (10:56)
[2021-04-27] MEDS: ARTIFICIAL TEARS 15ml EACHEYE PRN (10:56)
[2021-04-27 13:08] VITALS: BP 114/78
[2021-04-27 17:00] VITALS: BP 119/86
[2021-04-27] MEDS: IBUPROFEN 800 MG TAB PO PRN (21:24)
[2021-04-27 22:00] VITALS: BP 133/78
[2021-04-28 05:28] VITALS: BP 114/63
[2021-04-28] MEDS: VANCOMYCIN 1GM/250ML 250 ML IV SCH ×2 (06:15→21:22)
[2021-04-28 08:53] VITALS: BP 123/77
[2021-04-28] MEDS: amLODIPine BESYLATE 5 MG TAB PO SCH (09:31)
[2021-04-28] MEDS: ENOXAPARIN SOD 40 MG/0.4 ML SYRINGE SC SCH (09:32)
[2021-04-28 12:44] VITALS: BP 121/87
[2021-04-28 16:37] VITALS: BP 131/56
[2021-04-28] MEDS: IBUPROFEN 800 MG TAB PO PRN (21:23)
[2021-04-28 22:00] VITALS: BP 121/77
[2021-04-29 05:00] VITALS: BP 116/77
[2021-04-29 09:00] VITALS: BP 103/70
[2021-04-29] MEDS: ENOXAPARIN SOD 40 MG/0.4 ML SYRINGE SC SCH (10:06)
[2021-04-29] MEDS: amLODIPine BESYLATE 5 MG TAB PO SCH (10:06)
[2021-04-29] MEDS: VANCOMYCIN 1GM/250ML 250 ML IV SCH (10:09)
[2021-04-29 12:36] VITALS: BP 115/78
[2021-04-29 16:45] VITALS: BP 103/69
[2021-04-29] MEDS: IBUPROFEN 800 MG TAB PO PRN (21:13)
[2021-04-29 22:26] VITALS: BP 121/62
[2021-04-30] MEDS: VANCOMYCIN 1GM/250ML 250 ML IV SCH ×2 (00:12→15:28)
[2021-04-30 05:30] VITALS: BP 116/65
[2021-04-30 09:00] VITALS: BP 108/76
[2021-04-30] MEDS: amLODIPine BESYLATE 5 MG TAB PO SCH (09:22)
[2021-04-30] MEDS: ENOXAPARIN SOD 40 MG/0.4 ML SYRINGE SC SCH (09:22)
[2021-04-30 12:38] VITALS: BP 131/87
[2021-04-30 17:00] VITALS: BP 121/72
[2021-04-30] MEDS: IBUPROFEN 800 MG TAB PO PRN (21:31)
[2021-04-30 22:00] VITALS: BP 113/87
[2021-05-01 05:00] VITALS: BP 112/74
[2021-05-01] MEDS: VANCOMYCIN 1GM/250ML 250 ML IV SCH ×2 (05:00→18:55)
[2021-05-01 08:30] VITALS: BP 98/71
[2021-05-01] MEDS: amLODIPine BESYLATE 5 MG TAB PO SCH (09:44)
[2021-05-01] MEDS: ENOXAPARIN SOD 40 MG/0.4 ML SYRINGE SC SCH (09:46)
[2021-05-01 12:30] VITALS: BP 122/83
[2021-05-01 17:00] VITALS: BP 116/79
[2021-05-01] MEDS: IBUPROFEN 800 MG TAB PO PRN (21:54)
[2021-05-01 22:00] VITALS: BP 121/77
[2021-05-02 05:00] VITALS: BP 107/75
[2021-05-02 09:00] VITALS: BP 90/54
[2021-05-02] MEDS: VANCOMYCIN 1GM/250ML 250 ML IV SCH ×2 (09:07→23:26)
[2021-05-02] MEDS: ENOXAPARIN SOD 40 MG/0.4 ML SYRINGE SC SCH (09:07)
[2021-05-02] MEDS: amLODIPine BESYLATE 5 MG TAB PO SCH (09:31)
[2021-05-02 17:00] VITALS: BP 109/73
[2021-05-02] MEDS: IBUPROFEN 800 MG TAB PO PRN (20:42)
[2021-05-02 22:00] VITALS: BP 100/70
[2021-05-03 07:03] LABS: Basophils # (auto) 0 10 ^3/uL (0-0.2); Basophils % (auto) 0.5 % (0.0-2.0); Eosinophils # (auto) 0.2 10 ^3/uL (0-0.8); Eosinophils % (auto) 2.7 % (0.0-7.0); Lymphocytes # (auto) 2.5 10 ^3/uL (0.4-5.4); Lymphocytes % (auto) 30.7 % (10.0-50.0); Mean Corpuscular Hemoglobin 32.2 pg (28.0-32.0); Mean Corpuscular Volume 94.7 fL (80.0-100.0); Monocytes # (auto) 1.2 10 ^3/uL (0-1.3); Monocytes % (auto) 14.1 % (0.0-12.0); Neutrophils # (auto) 4.3 10 ^3/uL (1.6-8.6); Nucleated Red Blood Cells % 0.1 %; Red Blood Cells 4.96 10^6/uL (4.5-5.90); Red Cell Distribution Width 13.6 % (11.8-14.3); White Blood Cell 8.2 10^3/uL (4.4-10.8)
[2021-05-03 07:14] LABS: Potassium 4.6 mmol/L (3.5-5.1)
[2021-05-03 07:18] LABS: BUN/Creatinine Ratio 21.3
[2021-05-03 07:20] LABS: Bilirubin, Total 0.4 mg/dL (0.2-1.0); Total Protein 6.7 g/dL (6.4-8.2)
[2021-05-03 08:00] VITALS: BP 128/82
[2021-05-03 08:47] VITALS: BP 128/82
[2021-05-03] MEDS: ENOXAPARIN SOD 40 MG/0.4 ML SYRINGE SC SCH (09:38)
[2021-05-03] MEDS: amLODIPine BESYLATE 5 MG TAB PO SCH (09:39)
[2021-05-03 13:00] VITALS: BP 113/70
[2021-05-03] MEDS: VANCOMYCIN 1GM/250ML 250 ML IV SCH (13:14)
[2021-05-03 16:41] VITALS: BP 120/86
[2021-05-03 20:00] VITALS: BP 109/67
[2021-05-03] MEDS: IBUPROFEN 800 MG TAB PO PRN (20:40)
[2021-05-03 22:20] VITALS: BP 109/67
[2021-05-04] MEDS: VANCOMYCIN 1GM/250ML 250 ML IV SCH ×2 (03:09→17:04)
[2021-05-04 04:53] VITALS: BP 106/70
[2021-05-04 09:00] VITALS: BP 125/77
[2021-05-04] MEDS: ENOXAPARIN SOD 40 MG/0.4 ML SYRINGE SC SCH (09:10)
[2021-05-04] MEDS: amLODIPine BESYLATE 5 MG TAB PO SCH (09:11)
[2021-05-04 13:00] VITALS: BP 107/70
[2021-05-04 17:00] VITALS: BP 117/86
[2021-05-04] MEDS: IBUPROFEN 800 MG TAB PO PRN (21:28)
[2021-05-04 22:00] VITALS: BP 115/57
[2021-05-05 05:18] VITALS: BP 108/75
[2021-05-05] MEDS: VANCOMYCIN 1GM/250ML 250 ML IV SCH ×2 (06:45→21:00)
[2021-05-05] MEDS: ENOXAPARIN SOD 40 MG/0.4 ML SYRINGE SC SCH (08:59)
[2021-05-05 09:00] VITALS: BP_SYST 116; BP_SYST 133; BP_DIAS 55; BP_DIAS 97
[2021-05-05] MEDS: amLODIPine BESYLATE 5 MG TAB PO SCH (09:00)
[2021-05-05 12:39] VITALS: BP 127/68
[2021-05-05 16:55] VITALS: BP 112/69
[2021-05-05] MEDS: IBUPROFEN 800 MG TAB PO PRN (20:07)
[2021-05-05 22:00] VITALS: BP 110/70
[2021-05-06 05:00] VITALS: BP 123/81
[2021-05-06 09:00] VITALS: BP 105/70
[2021-05-06] MEDS: amLODIPine BESYLATE 5 MG TAB PO SCH (09:29)
[2021-05-06] MEDS: ENOXAPARIN SOD 40 MG/0.4 ML SYRINGE SC SCH (09:30)
[2021-05-06] MEDS: VANCOMYCIN 1GM/250ML 250 ML IV SCH (10:46)
[2021-05-06 12:39] VITALS: BP 113/79
[2021-05-06] MEDS: IBUPROFEN 800 MG TAB PO PRN (16:07)
[2021-05-06 16:40] VITALS: BP 109/75
[2021-05-06] MEDS: ARTIFICIAL TEARS 15ml EACHEYE PRN (17:22)
[2021-05-06 22:00] VITALS: BP 111/73
[2021-05-07] MEDS: VANCOMYCIN 1GM/250ML 250 ML IV SCH ×2 (01:19→15:09)
[2021-05-07 04:54] VITALS: BP 129/73
[2021-05-07 08:59] VITALS: BP 111/68
[2021-05-07] MEDS: ENOXAPARIN SOD 40 MG/0.4 ML SYRINGE SC SCH (10:06)
[2021-05-07] MEDS: amLODIPine BESYLATE 5 MG TAB PO SCH (10:06)
[2021-05-07 12:00] VITALS: BP 115/85
[2021-05-07 12:44] VITALS: BP 115/85
[2021-05-07 16:41] VITALS: BP 105/70
[2021-05-07] MEDS: IBUPROFEN 800 MG TAB PO PRN (20:51)
[2021-05-07 21:58] VITALS: BP 132/76
[2021-05-08 05:00] VITALS: BP 121/75
[2021-05-08] MEDS: VANCOMYCIN 1GM/250ML 250 ML IV SCH ×2 (05:33→18:31)
[2021-05-08 08:36] VITALS: BP 123/73
[2021-05-08 09:31] LABS: BUN/Creatinine Ratio 22.1; Calcium 8.8 mg/dL (8.5-10.1); Potassium 5.3 mmol/L (3.5-5.1)
[2021-05-08] MEDS: amLODIPine BESYLATE 5 MG TAB PO SCH (10:25)
[2021-05-08] MEDS: ENOXAPARIN SOD 40 MG/0.4 ML SYRINGE SC SCH (10:25)
[2021-05-08 12:41] VITALS: BP 107/68
[2021-05-08 16:35] VITALS: BP 100/68
[2021-05-08 22:00] VITALS: BP 117/75
[2021-05-09 05:00] VITALS: BP 121/88
[2021-05-09] MEDS: IBUPROFEN 800 MG TAB PO PRN (06:24)
[2021-05-09 09:00] VITALS: BP 116/68
[2021-05-09] MEDS: VANCOMYCIN 1GM/250ML 250 ML IV SCH (09:41)
[2021-05-09] MEDS: amLODIPine BESYLATE 5 MG TAB PO SCH (09:42)
[2021-05-09] MEDS: ENOXAPARIN SOD 40 MG/0.4 ML SYRINGE SC SCH (10:30)
[2021-05-09] MEDS ORDERED: AML5T PO (12:04)
[2021-05-09] MEDS ORDERED: CIPR500T4 PO (12:04)
[2021-05-09 13:00] VITALS: BP 109/71
[2021-05-09 14:10] VITALS: BP 110/74
== END 2021-05-09 16:20 | DRG 559 ==
LOC: ER 16:55 → EEVIPCON 16:55 → OVERFLOW 22:10 → WEST WING 23:56 → TELE-WESTW 04-21 01:16 → WEST WING 04-21 01:26
PROVIDERS: ADMIT Specialist; ATTEND Internal Medicine
PROC: 05HC33Z Insertion of Infusion Device into Left Basilic Vein, Percutaneous Approach (ICD-10-PCS; principal; 2021-04-02)
PROC: B54NZZA Ultrasonography of Left Upper Extremity Veins, Guidance (ICD-10-PCS; 2021-04-02)
PROC: 05HC33Z Insertion of Infusion Device into Left Basilic Vein, Percutaneous Approach (ICD-10-PCS; 2021-04-23)
PROC: B54NZZA Ultrasonography of Left Upper Extremity Veins, Guidance (ICD-10-PCS; 2021-04-23)
PROC: 05HB33Z Insertion of Infusion Device into Right Basilic Vein, Percutaneous Approach (ICD-10-PCS; 2021-05-07)
PROC: B54MZZA Ultrasonography of Right Upper Extremity Veins, Guidance (ICD-10-PCS; 2021-05-07)
DX: T84.53XA Infection and inflammatory reaction due to internal right knee prosthesis, initial encounter (principal); A41.9 Sepsis, unspecified organism; L03.115 Cellulitis of right lower limb; I10 Essential (primary) hypertension; K59.00 Constipation, unspecified; Z20.822 Contact with and (suspected) exposure to COVID-19; Z96.653 Presence of artificial knee joint, bilateral; Y84.8 Other medical procedures as the cause of abnormal reaction of the patient, or of later complication, without mention of misadventure at the time of the procedure; Y92.89 Other specified places as the place of occurrence of the external cause
CPT/HCPCS: 36415; 71045; 73560; 73700; 73721; 80048; 80053; 80202; 82140; 82565; 83735; 84132; 85025; 85610; 85652; 85730; 86141; 87040; 87081; 87426; 93005; 93971; 96365; 96367; 96375; 97110; 97116; 97530; C9113; G0378; J0696; J2405; J2543